=== PATIENT | male | born 1990 | race African-American/Black ===

== ENCOUNTER 2020-07-27 16:18 | Emergency (ER) | payer MEDICARE ==
[~2020-07-27] VITALS: Ht 175.3 cm; Wt 79.0 kg
[2020-07-27] MEDS ORDERED: CEFAZOLIN 1000MG PREMIX 50 ML IV ONE (17:00)
[2020-07-27] MEDS ORDERED: FENTANYL CITRATE/PF 50MCG/ML 2ML VIAL IV ONE (17:00)
[2020-07-27] MEDS ORDERED: TETANUS, DIPHTHERIA, PERTUSSIS VAC/PF 0.5ML (>7YR OLD) IM ONE (17:00)
[2020-07-27] MEDS ORDERED: HYDROMORPHONE HCL/PF 2MG/ML CPJ IV ONE ×2 (18:45→20:45)
[2020-07-27 20:50] VITALS: BP 167/107
== END 2020-07-27 21:27 | disposition short-term general hospital (02) ==
LOC: ER 16:18
DX: S61.432A Puncture wound without foreign body of left hand, initial encounter (principal); W34.09XA Accidental discharge from other specified firearms, initial encounter; Y93.89 Activity, other specified; Y92.89 Other specified places as the place of occurrence of the external cause; Y99.8 Other external cause status; Z20.822 Contact with and (suspected) exposure to COVID-19
CPT/HCPCS: 73090; 73110; 73130; 87426; 90471; 90715; 93005; 96365; 96375; 96376; 99285; J0690; J1170; J3010; Z7610